=== PATIENT | male | born 1960 | race Caucasian/White ===

== ENCOUNTER → 2021-03-29 09:50 | Outpatient (BNVA) | payer OTHER, SELFPAY | PROVIDERS: PCP Nurse Practitioner Family; Visit Provider Nurse Practitioner Family | DX: R05.9 Cough, unspecified (principal) | CPT/HCPCS: 87635 ==

== ENCOUNTER 2022-11-16 10:13 | Outpatient (RCR) | payer OTHER, SELFPAY | END 2022-12-07 23:59 | disposition home or self-care (01) | LOC: SOT 10:13 | PROVIDERS: Visit Provider Physician Assistant Surgical | DX: M65.4 Radial styloid tenosynovitis [de Quervain] (principal); M79.645 Pain in left finger(s); S61.213D Laceration without foreign body of left middle finger without damage to nail, subsequent encounter; X58.XXXD Exposure to other specified factors, subsequent encounter | CPT/HCPCS: 97022; 97110; 97140; 97166; 97530; G0283 ==

== ENCOUNTER 2022-12-08 06:00 | Outpatient (RCR) | payer OTHER, SELFPAY | END 2023-01-07 23:59 | disposition home or self-care (01) | LOC: SOT 06:00 | PROVIDERS: Visit Provider Physician Assistant Surgical | DX: M65.4 Radial styloid tenosynovitis [de Quervain] (principal) | CPT/HCPCS: 97022; 97032; 97035; 97110; 97140; G0283 ==

== ENCOUNTER 2023-01-08 06:00 | Outpatient (RCR) | payer OTHER, SELFPAY | END 2023-02-07 23:59 | disposition home or self-care (01) | LOC: SOT 06:00 | PROVIDERS: Visit Provider Physician Assistant Surgical | DX: M65.4 Radial styloid tenosynovitis [de Quervain] (principal); M79.645 Pain in left finger(s) | CPT/HCPCS: 97022; 97032; 97110; 97140; G0283 ==

== ENCOUNTER → 2024-01-08 15:31 | Outpatient (BNVA) | payer OTHER, SELFPAY | PROVIDERS: PCP Nurse Practitioner Family; Visit Provider Nurse Practitioner Family | DX: R10.9 Unspecified abdominal pain (principal); E11.9 Type 2 diabetes mellitus without complications; I10 Essential (primary) hypertension; R53.83 Other fatigue | CPT/HCPCS: 80053; 80061; 81000; 82150; 82962; 83036; 83690; 85025 ==